=== PATIENT | female | born 1955 | race Caucasian/White ===

== ENCOUNTER → 2023-10-21 12:40 | Outpatient (REF) | payer OTHER, SELFPAY | LOC: WDC 12:40 | PROVIDERS: ATTENDING PHYSICIAN Nurse Practitioner Adult Health | DX: Z12.31 Encounter for screening mammogram for malignant neoplasm of breast (principal) | CPT/HCPCS: 77063; 77067 ==

== ENCOUNTER → 2024-02-18 09:19 | Outpatient (REF) | payer MEDICARE, OTHER, SELFPAY | LOC: PAVMRI 09:19 | PROVIDERS: ATTENDING PHYSICIAN Surgery Plastic and Reconstructive Surgery; FAMILY PHYSICIAN Nurse Practitioner | DX: I99.9 Unspecified disorder of circulatory system (principal) | CPT/HCPCS: 70543; A9575 ==

== ENCOUNTER 2024-06-29 06:18 | Day surgery (SDC) | payer MEDICARE, OTHER, SELFPAY ==
[2024-06-29] VITALS (10 sets, daily range): BP systolic 139–167; BP diastolic 67–85; BMI 23.8
--- NOTE | 2024-06-29 10:59 | W.SUR.PREOP ---
Pre-Operative Surgical Note
-
I have examined this patient prior to the performance of the scheduled procedure.
The patient's condition is unchanged from the time of the current History and
Physical and the patient is able to undergo the scheduled procedure.
[2024-06-29] MEDS: TYLENOL 1000 MG PO (11:11)
[2024-06-29] MEDS: NORMOSOL-R/PLASMALYTE-A 1000 IV (11:13)
--- NOTE | 2024-06-29 13:04 | W.IMMPOSTOP ---
Surgical Immed Post Op Note
-
Primary Surgeon: ADDIE Velarde MD
Assisting Surgeon:
Pre-op Diagnosis: left forehead lesion, history of nonmelanoma skin cancer
Post-op Diagnosis: same
Procedure Performed: excision/debulking of left forehead lesion
Anesthesia Type: General
Specimen / Cultures: Left forehead scar, left forehead soft tissue lesion
Estimated Blood Loss: minimal
Complications: none
Operative Findings: no clearly defined mass
--- NOTE | 2024-06-29 13:04 | OR.RPT ---
Operative Report
Operative Report
date of surgery: 06/29/2024
Surgeon: ADDIE Velarde MD
Preoperative diagnosis: History of nonmelanoma skin cancer, left forehead lesion, abnormal scar, Venous abebe
Postoperative diagnosis: Same
Procedure:
1. Scar revision left forehead, 0.5 x 3.5 cm
2. Excision of left forehead lesion, 1.5 x 1.5 cm
Anesthesia: General
Complications: None
EBL: Minimal
specimens: Left forehead scar, left forehead subcutaneous mass
indications for procedure: Patient is a 69-year-old female with a history of skin cancer of the left forehead. This is remote, and she underwent Mohs at the time. Negative margins were confirmed and a flap reconstruction was performed. Following
that she had abnormal scar and intermittent swelling of the area. This has been injected multiply by her dozer operator and also biopsied. Biopsy showed venous abebe. There were no overlying skin changes concerning for recurrent cancer. Given the
waxing and waning nature, an MRI was performed to determine if there was a vascular component. Prominent vessels were noted but no clearly identified lesion. Conversation was had with the patient where continued observation could be performed, but
the patient desired definitive diagnosis and treatment. This would be performed via excision as well as scar revision of the left forehead. The prior scar would be utilized to create a subcutaneous dissection and remove the redundant tissue as a
debulking and biopsy procedure. She understood the risks and desired to proceed. Risks were reviewed in detail including recurrent lesion or mass, need for repeat procedure, scar, infection, bleeding. Specifically given the location, we talked
about the possibility of permanent numbness and nerve disruption in the area of the forehead and scalp.
Procedure in detail: Patient was identified preoperatively and the surgical site was confirmed to the left forehead. The line of the prior scar and also the delineation of the mass were made. All questions were answered consents were confirmed.
Patient was taken back the operating placed supine on table. Anesthesia was induced and the patient was prepped and draped in the usual sterile fashion using Betadine solution. Timeout for patient safety was performed confirmed that bilateral SCDs
were in place and preoperative antibiotics have been administered. Procedure began with regional blocks with 50-50 mixture 1% lidocaine with epinephrine and half percent Marcaine. Local ministration was performed as well. The prior scar was then
marked out for excision and a 15 blade was used to remove this prior scar over an area of 0.5 x 3.5 cm. Dissection continued the skin flaps were elevated being careful to preserve Any crossing nerve fibers. Frontalis and construction sales manager muscles were
identified and protected. The area of the prominence was identified and debulked being sure to leave healthy overlying skin. This tissue was sent for specimen. After the debulking over the area of 1.5 x 1.5 cm, the contour was improved. There
was no clearly identifiable mass or tissue plane. Advancement flap was then performed using wide undermining of the lateral forehead and medial forehead to create a tension-free closure of the prior scar. The wound was then closed with 5 oh-0
Vicryl deep followed by 5-0 Prolene. Patient tolerated the procedure well was performed out complication, all counts were correct at the end the case. She was extubated taken the PACU for further care
== END 2024-06-29 14:34 | disposition home or self-care (01) ==
LOC: SDS 06:18
PROVIDERS: ATTENDING PHYSICIAN Surgery Plastic and Reconstructive Surgery
DX: L98.8 Other specified disorders of the skin and subcutaneous tissue (principal); L90.5 Scar conditions and fibrosis of skin; Z85.828 Personal history of other malignant neoplasm of skin
CPT/HCPCS: 14040; 13120; 88304; C1894

== ENCOUNTER → 2024-11-08 10:59 | Outpatient (REF) | payer MEDICARE, OTHER, SELFPAY | LOC: WDC 10:59 | PROVIDERS: ATTENDING PHYSICIAN Nurse Practitioner Adult Health; FAMILY PHYSICIAN Nurse Practitioner | DX: Z12.31 Encounter for screening mammogram for malignant neoplasm of breast (principal) | CPT/HCPCS: 77063; 77067 ==